=== PATIENT | female | born 1945 | race Caucasian/White ===

== ENCOUNTER → 2018-07-20 | Outpatient (CLI) | payer OTHER, BC ==
[~2018-07-20] VITALS: Ht 165.1 cm; Wt 113.4 kg
[~2018-07-20] MED LIST: ASPIR 8181 MG PO; CALCIUM 500 +1 EAC5 PO; COLACE100 MG PO; DEXILANT60 MG PO; ESCITALOPRAM OX10 MG PO; NEURONTIN 300300 M1 PO; PERCOCET 7.5-31 EACH PO; SINGULAIR 10 MG10 M1 PO
[2018-07-20 10:18] VITALS: BP 139/81
--- NOTE | 2018-07-20 10:50 | NUR ---
[facility] Assessment: 1. History of Osteoarthritis: Left Upper Extremity Right Upper Extremity Left Lower Extremity Right Lower Extremity History of Rheumatoid Arthritis: Not Applicable 2. Height: 5 ft. 5 in. 165.1 cm. Weight: 250.0 lb. oz. 113.400 kg. Patient's BMI: 41.6 3. Vital Signs: BP: 139/81 Pulse: 95 Resp: 16 Temp: 02 Sat: 97 ECG Mon: 4. Pain Intensity: 10 5. Fall Risk: Dizziness: N Needs help standing or walking: Y Fallen in the last 3 months: Y Fall risk comments: 6. Patient on Blood Thinner: None 7. History of Hypertension: N 8. Opioid Therapy greater than 6 weeks: N Opiate Contract Signed: 9. Risk Assessment Tool Provided: 10. Functional Assessment Tool: 57/60 11. Recreational Drug Use: Never Drug Type: Tobacco Use: Never Smoker Tobacco Type: Amount or Packs/day: How Many Years: Alcohol Use: No Frequency: Quant:
== END | disposition home or self-care (01) ==
LOC: PAIN 06:54
DX: M54.16 Radiculopathy, lumbar region (principal); G89.29 Other chronic pain; J45.909 Unspecified asthma, uncomplicated; M19.90 Unspecified osteoarthritis, unspecified site; Z85.828 Personal history of other malignant neoplasm of skin; Z98.890 Other specified postprocedural states; Z90.49 Acquired absence of other specified parts of digestive tract; Z79.899 Other long term (current) drug therapy